=== PATIENT | female | born 1975 | race African-American/Black ===

== ENCOUNTER 2017-08-01 07:05 | Emergency (ER) | payer OTHER ==
[~2017-08-01] VITALS: Ht 172.7 cm; Wt 79.6 kg
[~2017-08-01 07:05] MED LIST: DIABETES PO; HYPERTENSION PO
[2017-08-01] MEDS ORDERED: LevETIRAcetam 1,000 MG in DEXTROSE 5%-WATER 100 ML IV ONE (07:15)
[2017-08-01] MEDS ORDERED: INSNPH SQ (07:26)
[2017-08-01] MEDS ORDERED: ROPI0.255 PO (07:26)
[2017-08-01] MEDS ORDERED: OMEP20 PO (07:26)
[2017-08-01] MEDS ORDERED: LISI-661 PO (07:26)
[2017-08-01] MEDS ORDERED: MIRT15 PO (07:26)
[2017-08-01] MEDS ORDERED: ONDA4 PO (07:26)
[2017-08-01] MEDS ORDERED: ATOR10TA84 PO (07:26)
[2017-08-01] MEDS ORDERED: TRAM50TA4 PO (07:26)
[2017-08-01] MEDS ORDERED: ESCI10TA PO (07:26)
[2017-08-01] MEDS ORDERED: CLON.5 PO (07:26)
[2017-08-01] MEDS ORDERED: PROP10 PO (07:26)
[2017-08-01] MEDS ORDERED: LORazepam 2 MG/ML VIAL ONE (07:31)
[2017-08-01] MEDS ORDERED: INSREG SQ (07:31)
[2017-08-01] MEDS ORDERED: LORazepam 2 MG/ML VIAL IVP ONE (07:45)
[2017-08-01 08:16] LABS: ANION GAP 5 mmol/L (8-16); CALCIUM, TOTAL 8.4 mg/dL (8.8-10.5); CARBON DIOXIDE 28 mmol/L (22-29); CHLORIDE 106 mmol/L (98-107); CREATININE 1.02 mg/dL (0.60-1.30); GLOMERULAR FILTR. RATE CALC > 60 mL/min (>60); POTASSIUM 4.5 mmol/L (3.5-5.1); SODIUM SERUM 139 mmol/L (136-145); UREA NITROGEN, BLOOD 12 mg/dL (7-18)
[2017-08-01 08:20] LABS: BASOPHILS % (AUTO) 0.3 % (0.0-2.0); EOSINOPHILS % (AUTO) 0.4 % (1.0-6.0); HEMOGLOBIN 10.3 g/dL (12.0-16.0); LYMPHOCYTES # (AUTO) 1.3 K/uL (1.0-4.8); LYMPHOCYTES % (AUTO) 16.9 % (22.0-44.0); MEAN CORPUSCULAR HEMOGLOBIN 22.2 pg (26.0-34.0); MEAN CORPUSCULAR VOLUME 69 fL (80-100); MONOCYTES # (AUTO) 0.5 K/uL (0.1-1.0); MONOCYTES % (AUTO) 6.2 % (2.0-9.0); NEUTROPHILS # (AUTO) 5.8 K/uL (1.8-7.7); NEUTROPHILS % (AUTO) 76.2 % (40.0-70.0); PLATELET COUNT (AUTO) 157 K/uL (150-450); RED BLOOD CELL COUNT(AUTO) 4.62 MIL/uL (4.00-5.20); RED CELL DISTRIBUTION WIDTH 15.3 % (11.5-14.5); WHITE BLOOD COUNT (AUTO) 7.6 K/uL (4.5-11.0)
[2017-08-01 08:28] LABS: ALANINE AMINOTRANSFERASE 65 U/L (12-78); ALBUMIN 2.8 g/dL (3.4-5.0); ASPARTATE AMINOTRANSFERASE 62 U/L (15-37); BILIRUBIN,TOTAL 0.2 mg/dL (0.1-1.0); TOTAL PROTEIN, SERUM 5.9 g/dL (6.4-8.2)
[2017-08-01] MEDS ORDERED: SODIUM CHLORIDE 0.9% 1,000 ML IV ONE (10:00)
[2017-08-01 10:35] VITALS: BP 139/85
[2017-08-01 11:15] LABS: RBC MORPHOLOGY COMMENT ABNORMAL RBC MORPH
== END 2017-08-01 11:59 | disposition short-term general hospital (02) ==
LOC: EMS 07:06
DX: G40.909 Epilepsy, unspecified, not intractable, without status epilepticus (principal); E11.65 Type 2 diabetes mellitus with hyperglycemia; K21.9 Gastro-esophageal reflux disease without esophagitis; E78.00 Pure hypercholesterolemia, unspecified; I10 Essential (primary) hypertension; F17.210 Nicotine dependence, cigarettes, uncomplicated; Z79.4 Long term (current) use of insulin; Z88.8 Allergy status to other drugs, medicaments and biological substances
CPT/HCPCS: 36415; 51702; 70450; 80053; 80307; 82962; 84703; 85025; 96374; 96375; 99291; J0712; J2060; J7030; J7060

== ENCOUNTER 2019-07-11 16:01 | Emergency (ER) | payer OTHER ==
[~2019-07-11] VITALS: Ht 170.2 cm; Wt 63.2 kg
[~2019-07-11 16:01] MED LIST changes: +ATOR10TA84 PO; +CLON.5 PO; -DIABETES PO; +ESCI10TA PO; -HYPERTENSION PO; +INSNPH SQ; +INSREG SQ; +LISI-661 PO; +MIRT15 PO; +OMEP20 PO; +ONDA4 PO; +PROP10TA73 PO; +ROPI0.257 PO; +TRAM50TA4 PO
[2019-07-11] MEDS ORDERED: LORazepam 2 MG/ML VIAL IM ONE (16:15)
[2019-07-11] MEDS ORDERED: SODIUM CHLORIDE 0.9% 1,000 ML IV ONE (16:30)
[2019-07-11 17:55] LABS: BASOPHILS % (AUTO) 0.3 % (0.0-2.0); EOSINOPHILS % (AUTO) 0 % (1.0-6.0); HEMATOCRIT 36.5 % (36-46); HEMOGLOBIN 11.4 g/dL (12.0-16.0); LYMPHOCYTES # (AUTO) 1.5 K/uL (1.0-4.8); LYMPHOCYTES % (AUTO) 11.5 % (22.0-44.0); MEAN CORPUSCULAR HEMOGLOBIN 21.3 pg (26.0-34.0); MEAN CORPUSCULAR HGB CONC 31.3 G/dL (31.0-37.0); MEAN CORPUSCULAR VOLUME 68 fL (80-100); MONOCYTES # (AUTO) 0.5 K/uL (0.1-1.0); MONOCYTES % (AUTO) 3.5 % (2.0-9.0); NEUTROPHILS # (AUTO) 11.2 K/uL (1.8-7.7); NEUTROPHILS % (AUTO) 84.7 % (40.0-70.0); PLATELET COUNT (AUTO) 172 K/uL (150-450); RED BLOOD CELL COUNT(AUTO) 5.35 MIL/uL (4.00-5.20); RED CELL DISTRIBUTION WIDTH 16.6 % (11.5-14.5)
[2019-07-11 18:12] LABS: ANION GAP 17 mmol/L (8-16); CALCIUM, TOTAL 9.9 mg/dL (8.8-10.5); CARBON DIOXIDE 20 mmol/L (22-29); CHLORIDE 105 mmol/L (98-107); CREATININE 1.35 mg/dL (0.60-1.30); GLOMERULAR FILTR. RATE CALC 51 mL/min (>60); GLUCOSE,RANDOM 308 mg/dL (70-110); POTASSIUM 4.3 mmol/L (3.5-5.1); SODIUM SERUM 142 mmol/L (136-145); UREA NITROGEN, BLOOD 15 mg/dL (7-18)
[2019-07-11 18:37] LABS: ACETAMINOPHEN < 2 mcg/mL (10-30); ALANINE AMINOTRANSFERASE 36 U/L (12-78); ALBUMIN 4.4 g/dL (3.4-5.0); ALKALINE PHOSPHATASE 130 U/L (46-116); ASPARTATE AMINOTRANSFERASE 21 U/L (15-37); BILIRUBIN,TOTAL 0.5 mg/dL (0.1-1.0); CREATINE KINASE, TOTAL ONLY 174 U/L (26-192); TOTAL PROTEIN, SERUM 7.7 g/dL (6.4-8.2)
[2019-07-11 19:11] LABS: PLATELET MORPHOLOGY COMMENT GIANT PLTS PRESENT
[2019-07-11] MEDS ORDERED: HALOPERIDOL LACTATE 5 MG/ML VIAL IM ONE (19:15)
[2019-07-11] MEDS ORDERED: DiphenhydrAMINE HCL 50 MG/ML VIAL IM ONE (19:15)
[2019-07-11 21:23] LABS: APPEARANCE,URINE CLEAR (CLEAR); BILIRUBIN,URINE NEGATIVE (NEGATIVE); GLUCOSE, URINE (UA) >=1000 mg/dL (NEGATIVE); KETONES,URINE 15 mg/dL (NEGATIVE); LEUKOCYTE ESTERASE ,URINE NEGATIVE (NEGATIVE); NITRATE,URINE NEGATIVE (NEGATIVE); OCCULT BLOOD,URINE MODERATE (NEGATIVE); PROTEIN,URINE SEE CONFIRM (NEGATIVE); UROBILINOGEN,URINE 0.2 mg/dL (<=1.0)
[2019-07-11 21:27] LABS: SULFOSALICYLIC ACID,URINE 3+ (Negative)
[2019-07-11 21:29] LABS: RBC,URINE 0-2 /HPF (0-2); WBC,URINE 0-2 /HPF (0-5)
[2019-07-11 21:30] LABS: BACTERIA,URINE None Seen /HPF (None Seen); SQUAMOUS EPITHELIAL CELL,UR Few /LPF (None Seen); YEAST,URINE Rare /HPF (None Seen)
[2019-07-11 21:36] LABS: AMPHET/METH SCREEN,URINE NEGATIVE (NEGATIVE); BARBITURATE SCREEN, URINE NEGATIVE (NEGATIVE); BENZODIAZEPINES SCREEN,URINE NEGATIVE (NEGATIVE); CANNABINOID SCREEN,URINE POSITIVE (NEGATIVE); COCAINE SCREEN,URINE NEGATIVE (NEGATIVE); METHADONE SCREEN, URINE NEGATIVE (NEGATIVE); OPIATE SCREEN,URINE NEGATIVE (NEGATIVE)
[2019-07-11 21:38] LABS: PHENCYCLIDINE SCREEN,URINE NEGATIVE (NEGATIVE)
[2019-07-11 22:57] VITALS: BP 116/79
== END 2019-07-12 01:30 | disposition home or self-care (01) ==
LOC: EMS 16:02
DX: F41.9 Anxiety disorder, unspecified (principal); E11.43 Type 2 diabetes mellitus with diabetic autonomic (poly)neuropathy; K31.84 Gastroparesis; E11.65 Type 2 diabetes mellitus with hyperglycemia; F32.9 Major depressive disorder, single episode, unspecified; K21.9 Gastro-esophageal reflux disease without esophagitis; E78.00 Pure hypercholesterolemia, unspecified; I10 Essential (primary) hypertension; F17.210 Nicotine dependence, cigarettes, uncomplicated; Z79.4 Long term (current) use of insulin; Z79.899 Other long term (current) drug therapy; Z88.8 Allergy status to other drugs, medicaments and biological substances
CPT/HCPCS: 36415; 80053; 80307; 81001; 82550; 85025; 96372; 99284; 99406; G0480; J1200; J1630; J2060; G0481

== ENCOUNTER 2019-10-05 10:12 | Emergency (ER) | payer OTHER ==
[~2019-10-05] VITALS: Ht 167.6 cm; Wt 70.5 kg
[2019-10-05] MEDS ORDERED: KETOROLAC TROMETHAMINE 30 MG/ML VIAL IVP ONE (10:15)
[2019-10-05] MEDS ORDERED: ONDANSETRON HCL 4 MG/2 ML VIAL IVP ONE (10:15)
[2019-10-05] MEDS ORDERED: LABETALOL HCL 5 MG/ML 20 ML VIAL IVP ONE (10:15)
[2019-10-05] MEDS ORDERED: DiphenhydrAMINE HCL 50 MG/ML VIAL IVP ONE (10:30)
[2019-10-05] MEDS ORDERED: DiphenhydrAMINE HCL 50 MG/ML VIAL IM ONE (10:45)
[2019-10-05] MEDS ORDERED: KETOROLAC TROMETHAMINE 30 MG/ML VIAL IM ONE (10:45)
[2019-10-05] MEDS ORDERED: ONDANSETRON HCL 4 MG/2 ML VIAL IM ONE (10:45)
[2019-10-05 10:50] LABS: GLUCOSE,POINT OF CARE 236 MG/DL (70-110)
[2019-10-05 12:24] LABS: BASOPHILS % (AUTO) 0.3 % (0.0-2.0); EOSINOPHILS % (AUTO) 0 % (1.0-6.0); HEMATOCRIT 38.2 % (36-46); HEMOGLOBIN 11.9 g/dL (12.0-16.0); LYMPHOCYTES # (AUTO) 1.5 K/uL (1.0-4.8); LYMPHOCYTES % (AUTO) 12.6 % (22.0-44.0); MEAN CORPUSCULAR HEMOGLOBIN 21.2 pg (26.0-34.0); MEAN CORPUSCULAR HGB CONC 31.1 G/dL (31.0-37.0); MEAN CORPUSCULAR VOLUME 68 fL (80-100); MONOCYTES # (AUTO) 0.4 K/uL (0.1-1.0); MONOCYTES % (AUTO) 3.8 % (2.0-9.0); NEUTROPHILS # (AUTO) 9.6 K/uL (1.8-7.7); NEUTROPHILS % (AUTO) 83.3 % (40.0-70.0); PLATELET COUNT (AUTO) 175 K/uL (150-450); RED BLOOD CELL COUNT(AUTO) 5.61 MIL/uL (4.00-5.20)
[2019-10-05 12:35] LABS: ANION GAP 17 mmol/L (8-16); CALCIUM, TOTAL 9.8 mg/dL (8.8-10.5); CARBON DIOXIDE 22 mmol/L (22-29); CHLORIDE 103 mmol/L (98-107); CREATININE 1.04 mg/dL (0.60-1.30); GLOMERULAR FILTR. RATE CALC > 60 mL/min (>60); GLUCOSE,RANDOM 230 mg/dL (70-110); POTASSIUM 4.2 mmol/L (3.5-5.1); SODIUM SERUM 142 mmol/L (136-145); UREA NITROGEN, BLOOD 18 mg/dL (7-18)
[2019-10-05] MEDS ORDERED: SODIUM CHLORIDE 0.9% 1,000 ML IV ONE (12:45)
[2019-10-05 12:48] LABS: ALANINE AMINOTRANSFERASE 40 U/L (12-78); ALBUMIN 4.3 g/dL (3.4-5.0); ALKALINE PHOSPHATASE 172 U/L (46-116); ASPARTATE AMINOTRANSFERASE 28 U/L (15-37); BILIRUBIN,TOTAL 0.5 mg/dL (0.1-1.0); LIPASE 44 U/L (73-393); TOTAL PROTEIN, SERUM 8.5 g/dL (6.4-8.2)
[2019-10-05] MEDS ORDERED: LISINOPRIL 10 MG TABLET PO ONE (14:30)
[2019-10-05] MEDS ORDERED: HALOPERIDOL LACTATE 5 MG/ML VIAL IVP ONE (15:45)
[2019-10-05] MEDS ORDERED: ClonazePAM 1 MG TABLET PO ONE (16:30)
[2019-10-05 23:20] VITALS: BP 127/74
== END 2019-10-06 01:51 | disposition home or self-care (01) ==
LOC: EMS 10:13
DX: R10.12 Left upper quadrant pain (principal); I10 Essential (primary) hypertension; R11.2 Nausea with vomiting, unspecified; F41.9 Anxiety disorder, unspecified; E11.9 Type 2 diabetes mellitus without complications; E78.00 Pure hypercholesterolemia, unspecified; K21.9 Gastro-esophageal reflux disease without esophagitis; F32.9 Major depressive disorder, single episode, unspecified; F17.210 Nicotine dependence, cigarettes, uncomplicated; Z98.890 Other specified postprocedural states; Z79.899 Other long term (current) drug therapy; Z88.8 Allergy status to other drugs, medicaments and biological substances; Z79.4 Long term (current) use of insulin
CPT/HCPCS: 36415; 80053; 82962; 83690; 85025; 96361; 96372; 96374; 96375; 99283; J1200; J1630; J1885; J2405; J3490; J7030

== ENCOUNTER 2019-10-24 09:27 | Inpatient (IN) | payer MEDICAID, OTHER ==
[~2019-10-24] VITALS: Ht 167.6 cm; Wt 58.7 kg
[2019-10-24 09:56] LABS: BASOPHILS % (AUTO) 0.3 % (0.0-2.0); EOSINOPHILS % (AUTO) 0.3 % (1.0-6.0); HEMATOCRIT 34.3 % (36-46); HEMOGLOBIN 10.7 g/dL (12.0-16.0); LYMPHOCYTES # (AUTO) 2.3 K/uL (1.0-4.8); LYMPHOCYTES % (AUTO) 23.7 % (22.0-44.0); MEAN CORPUSCULAR HEMOGLOBIN 21.4 pg (26.0-34.0); MEAN CORPUSCULAR HGB CONC 31.2 G/dL (31.0-37.0); MEAN CORPUSCULAR VOLUME 69 fL (80-100); MONOCYTES # (AUTO) 0.6 K/uL (0.1-1.0); NEUTROPHILS # (AUTO) 6.7 K/uL (1.8-7.7); NEUTROPHILS % (AUTO) 69.7 % (40.0-70.0); PLATELET COUNT (AUTO) 298 K/uL (150-450); RED BLOOD CELL COUNT(AUTO) 5.01 MIL/uL (4.00-5.20); RED CELL DISTRIBUTION WIDTH 15.8 % (11.5-14.5)
[2019-10-24 10:19] LABS: ALANINE AMINOTRANSFERASE 20 U/L (12-78); ALBUMIN 3.4 g/dL (3.4-5.0); ALKALINE PHOSPHATASE 137 U/L (46-116); ANION GAP 8 mmol/L (8-16); ASPARTATE AMINOTRANSFERASE 20 U/L (15-37); BILIRUBIN,TOTAL 0.3 mg/dL (0.1-1.0); CALCIUM, TOTAL 8.3 mg/dL (8.8-10.5); CARBON DIOXIDE 28 mmol/L (22-29); CHLORIDE 98 mmol/L (98-107); CREATININE 1.05 mg/dL (0.60-1.30); GLOMERULAR FILTR. RATE CALC > 60 mL/min (>60); POTASSIUM 4.3 mmol/L (3.5-5.1); SODIUM SERUM 134 mmol/L (136-145); UREA NITROGEN, BLOOD 10 mg/dL (7-18)
[2019-10-24 10:24] LABS: GLUCOSE,RANDOM 452 mg/dL (70-110)
[2019-10-24 11:16] LABS: GLUCOSE,POINT OF CARE 360 MG/DL (70-110)
[2019-10-24 11:59] LABS: AMPHET/METH SCREEN,URINE NEGATIVE (NEGATIVE); BARBITURATE SCREEN, URINE NEGATIVE (NEGATIVE); BENZODIAZEPINES SCREEN,URINE NEGATIVE (NEGATIVE); CANNABINOID SCREEN,URINE POSITIVE (NEGATIVE); COCAINE SCREEN,URINE NEGATIVE (NEGATIVE); METHADONE SCREEN, URINE NEGATIVE (NEGATIVE); OPIATE SCREEN,URINE NEGATIVE (NEGATIVE)
[2019-10-24 12:00] LABS: PHENCYCLIDINE SCREEN,URINE NEGATIVE (NEGATIVE)
[2019-10-24] MEDS ORDERED: INSULIN REGULAR, HUMAN 100 UNITS/ML SQ ONE (12:15)
[2019-10-24] MEDS ORDERED: HALOPERIDOL 5 MG TABLET PO ONE (12:30)
[2019-10-24] MEDS ORDERED: HALOPERIDOL 5 MG TABLET PO PRN (14:00)
[2019-10-24] MEDS ORDERED: ZOLPIDEM TARTRATE 10 MG TABLET PO PRN (14:00)
[2019-10-24 14:52] LABS: GLUCOSE,POINT OF CARE 267 MG/DL (70-110)
[2019-10-24] MEDS ORDERED: ALBUTEROL SULFATE HFA 90 MCG/PUFF 8 GM INHALER IH PRN (17:00)
[2019-10-24] MEDS ORDERED: NICOTINE 14 MG/24 HOUR PATCH TD PRN (17:00)
[2019-10-24] MEDS ORDERED: ONDANSETRON HCL 4 MG TABLET PO PRN (17:00)
[2019-10-24] MEDS ORDERED: PETROLATUM,WHITE 28 GM JELLY TP PRN (17:00)
[2019-10-24] MEDS ORDERED: GuaiFENesin/D-METHORPHAN [SUGAR-FREE] 200-20MG/10 ML SYRUP UDCUP PO PRN (17:00)
[2019-10-24] MEDS ORDERED: DOCUSATE SODIUM 100 MG CAPSULE PO PRN (17:00)
[2019-10-24] MEDS ORDERED: IBUPROFEN 400 MG TABLET PO PRN (17:00)
[2019-10-24] MEDS ORDERED: CloNIDine HCL 0.1 MG TABLET PO PRN (17:00)
[2019-10-24] MEDS ORDERED: MAGNESIUM HYDROXIDE SUSPENSION 30 ML UDCUP PO PRN (17:00)
[2019-10-24] MEDS ORDERED: ACETAMINOPHEN 325 MG TABLET PO PRN (17:00)
[2019-10-24] MEDS ORDERED: LOPERAMIDE HCL 2 MG CAPSULE PO PRN (17:00)
[2019-10-24] MEDS ORDERED: MAG HYDROX/AL HYDROX/SIMETH ES 30 ML SUSPENSION UDCUP PO PRN (17:00)
[2019-10-24 18:56] LABS: GLUCOSE,POINT OF CARE 243 MG/DL (70-110)
[2019-10-24 19:10] VITALS: BP 154/99
[2019-10-24] MEDS: ROPINIRole HCL 0.25 MG TABLET PO SCH (20:23)
[2019-10-24] MEDS ORDERED: DEXTROSE 50%-WATER 25 GM/50 ML SYRINGE IVP PRN (23:00)
[2019-10-25 06:12] LABS: GLUCOMETER DEV NAME(LOC) 3EX.; GLUCOSE,POINT OF CARE 266 MG/DL (70-110)
[2019-10-25] MEDS: INSULIN LISPRO 100 UNITS/ML SQ PRN ×4 (06:42→21:13)
[2019-10-25 08:19] LABS: CHOL/HDL RATIO 1.7 (3.9-5.7)
[2019-10-25 08:44] VITALS: BP 138/86
[2019-10-25] MEDS: ROPINIRole HCL 0.25 MG TABLET PO SCH ×3 (09:05→17:00)
[2019-10-25] MEDS: LISINOPRIL 10 MG TABLET PO SCH (09:05)
[2019-10-25] MEDS: ATORVASTATIN CALCIUM 10 MG TABLET PO SCH (09:06)
[2019-10-25] MEDS: OMEPRAZOLE 20 MG CAPSULE PO SCH (09:06)
[2019-10-25] MEDS: INSULIN GLARGINE,HUM.REC.ANLOG 100 UNITS/ML SQ SCH ×2 (09:10→17:01)
[2019-10-25 11:33] LABS: GLUCOMETER DEV NAME(LOC) 3EX.; GLUCOSE,POINT OF CARE 245 MG/DL (70-110)
[2019-10-25 15:30] VITALS: BP 95/60
[2019-10-25 16:50] VITALS: BP 95/60
[2019-10-25 16:54] LABS: GLUCOMETER DEV NAME(LOC) 3EX.; GLUCOSE,POINT OF CARE 215 MG/DL (70-110)
[2019-10-25] MEDS: PROPRANOLOL HCL 10 MG TABLET PO SCH ×3 (16:58→22:35)
[2019-10-25] MEDS: MIRTAZAPINE 15 MG TABLET PO SCH (21:07)
[2019-10-25] MEDS: ESCITALOPRAM OXALATE 10 MG TABLET PO SCH (21:07)
[2019-10-25 22:33] VITALS: BP_SYST 110; BP_SYST 127; BP_DIAS 78
[2019-10-26 01:18] VITALS: BP 138/86
[2019-10-26 05:30] LABS: GLUCOMETER DEV NAME(LOC) 3EX.; GLUCOSE,POINT OF CARE 294 MG/DL (70-110)
[2019-10-26] MEDS: INSULIN LISPRO 100 UNITS/ML SQ PRN (07:03)
[2019-10-26] MEDS: INSULIN GLARGINE,HUM.REC.ANLOG 100 UNITS/ML SQ SCH ×2 (08:20→16:55)
[2019-10-26] MEDS: OMEPRAZOLE 20 MG CAPSULE PO SCH (08:20)
[2019-10-26] MEDS: ATORVASTATIN CALCIUM 10 MG TABLET PO SCH (08:21)
[2019-10-26] MEDS: ROPINIRole HCL 0.25 MG TABLET PO SCH ×3 (08:21→16:55)
[2019-10-26] MEDS: PROPRANOLOL HCL 10 MG TABLET PO SCH ×2 (08:21→16:55)
[2019-10-26] MEDS: LISINOPRIL 10 MG TABLET PO SCH (08:21)
[2019-10-26 09:15] VITALS: BP 147/74
[2019-10-26] MEDS: ClonazePAM 1 MG TABLET PO PRN (13:48)
[2019-10-26 16:51] LABS: GLUCOMETER DEV NAME(LOC) 3EX.; GLUCOSE,POINT OF CARE 126 MG/DL (70-110)
[2019-10-26 18:47] VITALS: BP 147/7
[2019-10-26 20:59] LABS: GLUCOMETER DEV NAME(LOC) 3EX.; GLUCOSE,POINT OF CARE 148 MG/DL (70-110)
[2019-10-26] MEDS: ESCITALOPRAM OXALATE 10 MG TABLET PO SCH (21:00)
[2019-10-26] MEDS: MIRTAZAPINE 15 MG TABLET PO SCH (21:00)
[2019-10-27 05:33] VITALS: BP 112/83
[2019-10-27 05:45] LABS: GLUCOMETER DEV NAME(LOC) 3EX.; GLUCOSE,POINT OF CARE 148 MG/DL (70-110)
[2019-10-27] MEDS: LISINOPRIL 10 MG TABLET PO SCH (08:30)
[2019-10-27] MEDS: ClonazePAM 1 MG TABLET PO PRN (08:30)
[2019-10-27] MEDS: OMEPRAZOLE 20 MG CAPSULE PO SCH (08:30)
[2019-10-27] MEDS: PROPRANOLOL HCL 10 MG TABLET PO SCH (08:30)
[2019-10-27] MEDS: ROPINIRole HCL 0.25 MG TABLET PO SCH ×2 (08:30→12:46)
[2019-10-27] MEDS: ATORVASTATIN CALCIUM 10 MG TABLET PO SCH (08:30)
[2019-10-27] MEDS: INSULIN GLARGINE,HUM.REC.ANLOG 100 UNITS/ML SQ SCH (08:35)
[2019-10-27] MEDS: INSULIN LISPRO 100 UNITS/ML SQ PRN (08:37)
[2019-10-27 08:56] VITALS: BP 130/74
[2019-10-27 11:26] LABS: GLUCOMETER DEV NAME(LOC) 3EX.; GLUCOSE,POINT OF CARE 117 MG/DL (70-110)
[2019-10-27] MEDS ORDERED: INSLAN SQ (12:14)
== END 2019-10-27 14:04 | disposition home or self-care (01) | DRG 750 ==
LOC: EMS 09:28 → 3EI 17:23
PROVIDERS: ADMIT Psychiatry & Neurology Psychiatry; ATTEND Psychiatry & Neurology Psychiatry
DX: F25.0 Schizoaffective disorder, bipolar type (principal); R45.851 Suicidal ideations; E11.65 Type 2 diabetes mellitus with hyperglycemia; E78.00 Pure hypercholesterolemia, unspecified; F12.90 Cannabis use, unspecified, uncomplicated; F41.9 Anxiety disorder, unspecified; F17.210 Nicotine dependence, cigarettes, uncomplicated; K21.9 Gastro-esophageal reflux disease without esophagitis; I10 Essential (primary) hypertension; E78.5 Hyperlipidemia, unspecified; F10.10 Alcohol abuse, uncomplicated; D64.9 Anemia, unspecified; G40.909 Epilepsy, unspecified, not intractable, without status epilepticus; G25.81 Restless legs syndrome; Z88.8 Allergy status to other drugs, medicaments and biological substances; Z79.4 Long term (current) use of insulin
CPT/HCPCS: G0480; J1815